=== PATIENT | male | born 1965 | race Caucasian/White ===

== ENCOUNTER 2025-01-24 05:36 | Day surgery (SDC) | payer BC, OTHER ==
[2025-01-20 15:19] VITALS: BMI 21.9
[2025-01-24] MEDS ORDERED: BUPIVACAINE HCL/PF 0.5% (5MG/ML) 10 ML VIAL ONE (07:29)
[2025-01-24] MEDS ORDERED: LIDOCAINE HCL 1%, 10 MG/ML (20ML VIAL) ONE (07:29)
[2025-01-24] MEDS ORDERED: MIDAZOLAM HCL 2 MG/2 ML SINGLE DOSE VIAL ONE (07:59)
[2025-01-24] MEDS ORDERED: ROCURONIUM BROMIDE 50 MG/5 ML SYRINGE ONE (07:59)
[2025-01-24] MEDS ORDERED: LIDOCAINE HCL/PF 2% SDV 5ML VIAL ONE (07:59)
[2025-01-24] MEDS ORDERED: PROPOFOL 20 ML ONE (07:59)
[2025-01-24] MEDS ORDERED: ceFAZolin SODIUM 1 GM VIAL ONE (08:19)
[2025-01-24] MEDS: ceFAZolin SODIUM 1 GM VIAL IVPB ONE (08:22)
[2025-01-24] MEDS: LIDOCAINE HCL 1%, 10 MG/ML (50 mL VIAL) INF ONE ×2 (08:23)
[2025-01-24] MEDS: BUPIVACAINE HCL/PF 0.5% (5MG/ML) 10 ML VIAL IJ ONE ×2 (08:23)
[2025-01-24] MEDS ORDERED: DEXAMETHASONE SOD PHOSPHATE 4 MG/1 ML VIAL ONE (08:42)
[2025-01-24] MEDS ORDERED: ONDANSETRON 4 MG/2 ML VIAL ONE (08:42)
[2025-01-24] MEDS ORDERED: ONDANSETRON 4 MG/2 ML VIAL IVPUSH PRN (09:08)
[2025-01-24] MEDS ORDERED: oxyCODONE HCL 5 MG TABLET PO PRN (09:08)
[2025-01-24] MEDS ORDERED: LACTATED RINGERS SOLUTION 1,000 ML IV SCH (09:15)
[2025-01-24 10:12] VITALS: RESP 18
[2025-01-24 11:47] VITALS: BP 130/84; PULSE 88; TEMP 97.3
== END 2025-01-24 11:59 | disposition home or self-care (01) ==
LOC: JASU-SURG 05:36
PROVIDERS: ATTEND Surgery
PROC: 0WBF0ZZ Excision of Abdominal Wall, Open Approach (ICD-10-PCS; 2025-01-24)
PROC: 0WBF0ZZ Excision of Abdominal Wall, Open Approach (ICD-10-PCS; principal; 2025-01-24 08:00)
DX: D17.1 Benign lipomatous neoplasm of skin and subcutaneous tissue of trunk (principal)
CPT/HCPCS: 88304-TC; 94760